=== PATIENT | female | born 1995 ===

== ENCOUNTER → 2018-07-09 14:39 | Outpatient (CLI) | payer OTHER, SELFPAY ==
--- NOTE | 2018-07-09 | DI.US.S_ITS ---
PROCEDURE: US OB LIMITED INDICATIONS: UMBILICAL CORD INSERTION OUTSIDE/PRIOR DATING DATA: Last menstrual period (LMP): 11/05/17. LMP-based estimated date of delivery (VANITA): 08/12/18. First dating scan (date and location): 12/29/17. Estimated date of delivery (VANITA) from first dating scan: 08/17/18. TECHNIQUE: Real-time scanning was performed of the fetus, with image documentation. Endovaginal scanning: None COMPARISON: None. FINDINGS: A single living intrauterine gestation is present. Presentation: Vertex Placenta: Placental position is left posterior fundal, without previa. Amniotic fluid index: 9.3 cm, normal range is 5-24 cm. heart rate: 133 beats per minute. Estimated gestational age from initial scan: 34 weeks 3 days Placental cord insertion is not well visualized on this study, appears to be grossly in normal position. IMPRESSION: Single live interim with fetus in vertex presentation. heart rate is 133 beats per minute. Placenta cord insertion is not well evaluated on this study, however appears to be grossly normal. Dictated by: Brian Carney M.D. on 07/09/2018 at 16:15 Approved by: Brian Carney M.D. on 07/09/2018 at 16:18
== END ==
PROVIDERS: Visit Provider Nurse Practitioner Obstetrics & Gynecology
DX: O43.123 Velamentous insertion of umbilical cord, third trimester (principal); Z3A.34 34 weeks gestation of pregnancy
CPT/HCPCS: 76815